=== PATIENT | female | born 1940 | race Caucasian/White ===

== ENCOUNTER 2018-03-07 09:57 | Outpatient (CLI) | payer MEDICARE ==
--- NOTE | 2018-03-07 11:51 | CT ---
ABDOMEN AND PELVIS CT, WITH AND WITHOUT CONTRAST: INDICATION: Fatigue, Crohn's disease, abdominal pain. FINDINGS: No consolidation or effusion at the imaged lung bases. There is abnormal heterogeneous density of th e central aspect of the liver about the hepatic hilum and anterior segment right hepatic lobe/medial segment left hepatic lobe indicative of an infiltrating mass, which is also inseparable from the ileana cent distal stomach and traversing duodenum as well as encasing the biliary system. There is associa parker periportal/portocaval adenopathy. There is a noninflamed ventral abdominal wall hernia containin g nonobstructed bowel. Diffuse atherosclerosis is present. The kidneys are atrophic without hydrone phrosis. No adrenal mass. Pancreas is atrophic. The spleen is unremarkable. There is no small bow el obstruction evident. There is lipomatous hypertrophy of the ileocecal valve. Nonspecific wall th ickening of the colon is present, some of which may be due to under distention as well as the patient 's prior history of inflammatory bowel disease. There are also colonic diverticula. There is scatte red osseous degenerative change. IMPRESSION: Findings most consistent with an infiltrating/inflammatory malignancy which is centered about the hep atic hilum, involving the right and left hepatic lobes, encasing the biliary system, as well as insep arable from the distal stomach and transversing duodenum. This likely arises from the biliary system with invasion of the adjacent alimentary canal, and also extending into the central aspect of the li mariluz. There is adjacent, metastatic adenopathy. PET CT may prove useful for further assessment. POS: [facility]
[2018-03-07] MEDS ORDERED: Iopamidol 370 76% 100 ML VIAL ONE (15:01)
== END 2018-03-07 09:58 | disposition home or self-care (01) ==
LOC: CT 09:57
PROVIDERS: ATTEND Internal Medicine Gastroenterology
DX: K50.90 Crohn's disease, unspecified, without complications (principal); K43.9 Ventral hernia without obstruction or gangrene; R93.2 Abnormal findings on diagnostic imaging of liver and biliary tract; R63.4 Abnormal weight loss; R53.83 Other fatigue; R10.31 Right lower quadrant pain
CPT/HCPCS: 74178; 82565

== ENCOUNTER 2018-03-28 09:05 | Day surgery (SDC) | payer MEDICARE ==
[2018-03-27 12:38] VITALS: BMI 29.5
[~2018-03-28 09:05] MED LIST: Prevnar 13-Val Conj/PF 0.5 ML SYRINGE IM ONE
[2018-03-28 09:23] LABS: #Basophils 0.1 thou/uL (0.0-0.2); #Eosinphils 0.3 thou/uL (0.0-0.7); #Lymphocytes 2.4 thou/uL (1.20-3.40); #Monocytes 0.4 thou/uL (0.11-0.59); %Basophils 0.6 % (0.0-1.0); %Eosinophils 3.3 % (0.0-10.0); %Lymphocytes 29.5 % (21.0-51.0); %Monocytes 5.3 % (0.0-10.0); %Neutrophils 61.2 % (42.0-75.0); Hemoglobin 13.2 g/dL (12.0-16.0); Mean Corpuscular HGB CONC 35.1 g/dL (32.0-36.0); Mean Corpuscular Hemoglobin 29.8 pg (27.0-31.0); Mean Corpuscular Volume 84.7 fL (78.0-98.0); Mean Platelet Volume 6.7 fL (7.4-10.4); Platelet Count 253 thou/uL (130-400); Red Blood Cell (RBC) Count 4.43 mill/uL (4.20-5.40); White Blood Cell (WBC) Count 8.2 thou/uL (4.8-10.8)
[2018-03-28 10:27] VITALS: BP 154/76; TEMP 97.6
[2018-03-28] MEDS ORDERED: HYDROcodone/Acetaminophen 5/325 mg Tablet ONE (11:24)
--- NOTE | 2018-03-28 12:20 | CT ---
CT GUIDED LIVER BIOPSY: Indication: Liver masses have been previously documented on CT. Patient referred for CT directed biop sy of this liver mass. FINDINGS: The mass in the central liver near the portahepatis is again seen. This mass was biopsied under CT gu idance with 18 gauge instrument. Two 18 gauge core specimens were obtained, each approximately 3 cm i n length. Pathology confirmed adequacy of tissue at bedside. There were no problems or complications. PROCEDURE NOTE: The procedure and potential risks were discussed with patient and her daughter. Patient was placed [place] on the CT table. CT scan was performed and the skin entry site was identified. The overlying ski n was then prepped and draped in a sterile manner. Local anesthesia was administered with Lidocaine a nd bicarb. Tiny skin incision was made. A 17 gauge guide needle with Trocar in place was introduced u nder CT guidance. Tip was placed within the mass. A core specimen was obtained and given to pathology . Pathology confirmed adequate tissue with evidence of pathology. A second 3 cm 17 gauge core was obtained. Post procedure CT shows no significant hematoma. Patient was sent to recovery in good condition. POS: [facility]
== END 2018-03-28 13:10 | disposition home or self-care (01) ==
LOC: CT 09:05
PROVIDERS: ATTEND Radiology Diagnostic Radiology
PROC: 0FB03ZX Excision of Liver, Percutaneous Approach, Diagnostic (ICD-10-PCS; principal; 2018-03-28)
DX: C22.7 Other specified carcinomas of liver (principal); K46.9 Unspecified abdominal hernia without obstruction or gangrene; Z88.2 Allergy status to sulfonamides; Z91.041 Radiographic dye allergy status; Z79.899 Other long term (current) drug therapy
CPT/HCPCS: 36415; 47000; 77002; 85025; 85610; 85730; 88307; 88333; 88334; 88341; 88342

== ENCOUNTER 2018-04-19 07:57 | Outpatient (CLI) | payer MEDICARE ==
--- NOTE | 2018-04-19 13:21 | MRI ---
MRI ABDOMEN WITH AND WITHOUT CONTRAST: HISTORY: Malignant neoplasm of the biliary tract. COMPARISON: CT from 03/07/2018. FINDINGS: There is a large mass in the left and right lobes of the liver, involving segments 4A and 4B, as well as hepatic segments 5 and 6. This is the index mass and it measures 8.2 x 7.1 x 9 cm. This mass is predominantly centrally necrotic. There is extension along the peripheral biliary system, into hepa tic segment 8. The measurements are saved on the examination for comparison in the future. The mass extends along the common bile duct and follows the duodenum, second portion. There is also a new co mparison examination subcapsular mass, hepatic segment 8, measuring up to 1.3 cm. The portal vein is patent. The renal cortices are thin. Small loc hepatis lymph nodes. These do not appear to be definitivel y involved. They measure up to 7 mm in short axis and is saved on the exam. The spleen is unremarkable. The adrenal glands are unremarkable. No aneurysmal dilatation of the aorta. Marrow signal is unremarkable. IMPRESSION: 1. Large biliary malignancy involving multiple segments of the left and right lobes of the liver, ex tending to involve the gallbladder, with extension along the second portion of the duodenum. There i s also a new satellite metastatic lesion, hepatic segment 8, subcapsular. 2. Small loc hepatis lymph node, not definitively involved. POS: [facility]
[2018-04-19] MEDS ORDERED: Gadobenate Dimeglumine 529 MG/1 ML (20ML VIAL) ONE (14:28)
--- NOTE | 2018-04-19 15:54 | PET ---
NUCLEAR MEDICINE FDG PET CT WHOLE BODY: (Positron Emission Tomography) DATE: 04/19/18 HISTORY: 77-year-old female with malignant neoplasm of overlapping sites of biliary tract. Initial stagi ng. COMPARISON: No prior PET CTs. There is a CT of the abdomen and pelvis of 03/07/18 and MRI of abdomen or 04/19/18. TECHNIQUE: IV injection F-18 Fluorodeoxyglucose (FDG) dose: 12.9 mCi. Whole body PET and attenuation-correction CT performed from skull base to proximal thighs. FINDINGS: SUV (standard uptake value) numbers given are maximum SUV's: There is no abnormal FDG-avid lesion in the neck or chest. The large mass centered at the hepatic hilum, invading adjacent portions of the left and right lobes of the liver, is very FDG-avid, with SUV up to 15.3. Separate from this, there is a small satellite n odule in the anterior upper right lobe of the liver, in a subcapsular location, probably at hepatic s egment 8, with SUV of 5.7. There is no FDG avidity in the extrahepatic portion of the mass, including the portion that surrounds the second stage of the duodenum and hepatic hilum. In fact, the second s tage of the duodenum appears less thickening on the current attenuation correction CT images than on the original CT with contrast of 03/07/18. No hypermetabolic lymph nodes of the loc hepatis, mesent hussein, or retroperitoneum, or iliac chains, identified. There are numerous foci of increased uptake in different portions of the colon. There is herniation of a loop of mid segment of a redundant transver se colon, through a 5.5 cm wide defect in the lower ventral abdominal wall, with the hernia sac in th e subcutaneous fat. IMPRESSION: 1. Large confluent intrahepatic mass that is highly FDG-avid, representing a large malignant hepatic neoplastic tumor. 2. There is a small satellite FDG-avid nodule located separately from this superiorly in a subcapsul ar location at the anterior liver dome. 3. The extrahepatic loc hepatis abnormalities, including that of the duodenum, noted on recent MRI and prior CT, are not hypermetabolic. 4. No evidence of distant metastasis. AZUL Galeana POS: [facility]
== END 2018-04-19 07:58 | disposition home or self-care (01) ==
LOC: MRI 07:57
PROVIDERS: ATTEND Internal Medicine Hematology & Oncology
DX: C24.8 Malignant neoplasm of overlapping sites of biliary tract (principal); Z01.812 Encounter for preprocedural laboratory examination; C78.7 Secondary malignant neoplasm of liver and intrahepatic bile duct; C78.89 Secondary malignant neoplasm of other digestive organs; C78.4 Secondary malignant neoplasm of small intestine; K76.89 Other specified diseases of liver
CPT/HCPCS: 74183; 78815; 82565; A9552; A9579

== ENCOUNTER 2018-05-01 06:45 | Day surgery (SDC) | payer MEDICARE ==
[2018-04-30 11:16] VITALS: BMI 28.5
[2018-05-01] MEDS ORDERED: CEFAZOLIN/Water 2 GM/20 ML SYRINGE ONE (07:57)
[2018-05-01] MEDS ORDERED: Bupivacaine/Epinephrine 0.25% 30 ML VIAL ONE (08:27)
[2018-05-01] MEDS ORDERED: Lidocaine 2% PF Inj 2 ML VIAL ONE (08:27)
[2018-05-01] MEDS ORDERED: Fentanyl 100 MCG/2 ML VIAL ONE (08:28)
[2018-05-01] MEDS ORDERED: Midazolam HCl 2 mg/2 ml Vial ONE (08:28)
--- NOTE | 2018-05-01 11:40 | RAD ---
CHEST ONE VIEW: HISTORY: Mediport placement. COMPARISON: None. FINDINGS: The port catheter is in place with the tip projecting over the superior SVC. The patient is rotated to the left. Likely calcified granuloma projecting over the right upper lobe. IMPRESSION: Uncomplicated placement of port catheter. POS: [facility]
[2018-05-01] MEDS ORDERED: PROPOFOL 200 MG/20 ML VIAL ONE (13:50)
[2018-05-01] MEDS ORDERED: Ondansetron HCl/PF 4 MG/2 ML Vial ONE (13:50)
--- NOTE | 2018-05-02 13:45 | OP ---
DATE OF PROCEDURE: 05/01/2018 PREOPERATIVE DIAGNOSIS: Biliary cancer. POSTOPERATIVE DIAGNOSIS: Biliary cancer. PROCEDURE: Tunneled central line subcutaneous port (MediPort), CT injectable. SURGEON: Dr. Flex Peña. ANESTHESIA: General. ESTIMATED BLOOD LOSS: Minimal. COMPLICATIONS: None. SPECIMEN: None. TECHNIQUE: The patient was taken to the operating room and placed supine on the table. After genera l anesthetic was obtained, the bilateral neck and chest were prepped and draped in a sterile fashion. Local anesthetic infiltrated over the right internal jugular vein. Intrajugular vein cannulated us ing a 20 gauge finder needle followed by a Seldinger wire was passed into superior vena cava under fl uoroscopy guidance. A small diamante was made through entrance site. A separate 3 cm incision made in t he right upper chest. Subcutaneous pocket made below the lower incision. Tubing for the MediPort tu nneled from the inferior to superior incision. Introducer sheath placed over the wire into the super ior vena cava under fluoroscopic guidance. The dilator and wire removed. The end of the catheter th readed into the sheath and sheath is peeled away. The tip of catheter is at the atriocaval junction. MediPort tubing cut to fit the MediPort at the lower incision. Tubing was connected to MediPort wh ich was sewn to the chest wall in the subcutaneous pocket using Prolene. The MediPort flushes and dr jess blood without difficulty, flushed with a heparin flush. The wounds are irrigated and closed usin g 3-0 Vicryl, 4-0 Monocryl, and Dermabond. The patient was en route to recovery in stable condition. All instrument counts, needle counts, lap counts were correct.
== END 2018-05-01 10:19 | disposition home or self-care (01) ==
LOC: SDC 06:45
PROVIDERS: ATTEND Surgery
PROC: 0JH63WZ Insertion of Totally Implantable Vascular Access Device into Chest Subcutaneous Tissue and Fascia, Percutaneous Approach (ICD-10-PCS; principal; 2018-05-01)
DX: C24.9 Malignant neoplasm of biliary tract, unspecified (principal); I10 Essential (primary) hypertension; Z88.2 Allergy status to sulfonamides; Z91.041 Radiographic dye allergy status; Z79.899 Other long term (current) drug therapy
CPT/HCPCS: 36561; 71045; C1788; J1642; J2250; J2405; J2704; J3010

== ENCOUNTER 2018-05-05 19:24 | Inpatient (IN) | payer MEDICARE ==
[2018-05-05] MEDS ORDERED: Acetaminophen 500 MG TAB ONE (20:19)
[2018-05-05 20:30] LABS: Hemoglobin 11.2 g/dL (12.0-16.0); Mean Corpuscular HGB CONC 33.8 g/dL (32.0-36.0); Mean Corpuscular Hemoglobin 28.3 pg (27.0-31.0); Mean Corpuscular Volume 83.9 fL (78.0-98.0); Mean Platelet Volume 7.1 fL (7.4-10.4); Platelet Count 128 thou/uL (130-400); RBC Distribution Width 12.9 % (11.5-14.5); Red Blood Cell (RBC) Count 3.95 mill/uL (4.20-5.40); White Blood Cell (WBC) Count 6.8 thou/uL (4.8-10.8)
[2018-05-05] MEDS ORDERED: Cefepime 2 GM in Sodium Chloride 0.9% 100 ML IVPB SCH (20:30)
[2018-05-05] MEDS ORDERED: Vancomycin HCl 1.5 GM in Sodium Chloride 0.9% 250 ML 300 ML IVPB SCH (20:30)
[2018-05-05 20:33] LABS: Band 2 % (5-11); Lymphocytes 25 % (21-51); MDiff Complete? YES; Neutrophil 71 % (42-75); PLT Morphology Comment Appears Decreased; Polychromasia SLIGHT = 2-3 cells (100X) (0-2/hpf); Reactive Lymphocytes 2 % (0-10)
[2018-05-05 20:38] LABS: ALT (SGPT) 75 U/L (8-55); AST (SGOT) 103 U/L (5-34); Albumin 3.5 g/dL (3.4-4.8); Alkaline Phosphatase 129 U/L (40-150); Anion Gap 15 mmol/L (10-20); BUN (Urea Nitrogen) 17 mg/dL (9.8-20.1); Bilirubin, Total 0.7 mg/dL (0.2-1.2); Calc. Creatinine Clearance 0 mL/min (70-130); Calcium 8.5 mg/dL (7.8-10.44); Carbon Dioxide 29 mmol/L (23-31); Chloride 94 mmol/L (98-107); Estimated GFR-MDRD 49; Globulin 3.5 g/dL (2.4-3.5); Glucose 102 mg/dL (83-110); Potassium 3.6 mmol/L (3.5-5.1); Sodium 134 mmol/L (136-145)
[2018-05-05] MEDS ORDERED: Bisacodyl 5 MG TAB PO PRN (22:10)
[2018-05-05] MEDS ORDERED: Acetaminophen 650 MG Suppository PR PRN (22:10)
--- NOTE | 2018-05-05 22:10 | RAD ---
PORTABLE CHEST: 05/05/18 HISTORY: Fever, chills. COMPARISON: 11/03/11 study. The patient is somewhat rotated on this exam. The heart size appears slightly enlarged. Right sided M ediport catheter is present. There are atherosclerotic changes of the aorta. The lungs are clear of i nfiltrates. IMPRESSION: Mild cardiomegaly. POS: [facility]
[2018-05-05 23:04] LABS: Bilirubin Negative (Negative); Blood, Urine Negative (Negative); Clarity CLEAR (Clear); Glucose, Urine (Dipstick) Negative (Negative); Leukocyte Negative (Negative); Nitrite Negative (Negative); Protein, Urine (Dipstick) Trace mg/dL (Neg-Trace); Specific Gravity, Urine 1.017 (1.002-1.036); pH, Urine 6.5 (5.0-9.0)
[2018-05-06] MEDS: Sodium Chloride 0.9% 1,000 ML IV SCH ×2 (00:57→17:35)
[2018-05-06 01:15] VITALS: BMI 29.0
[2018-05-06 01:32] LABS: HBCM Index 0.07 S/CO (0-0.79); HBSAg Index 0.19 S/CO (0-0.99); Hep A IgM AB Non-Reactive (NonReactive); Hep A IgM S/CO 0.09 S/CO (0-0.79); Hep B Surf Ag Non-Reactive S/CO (NonReactive); Hep C IgG Ab Non-Reactive (NonReactive); Hep C Index 0.18 S/CO (0-0.79); Hepatitis B Core IGM Abs Non-Reactive (NonReactive)
[2018-05-06] MEDS: Acetaminophen 325 MG TAB PO PRN (05:17)
[2018-05-06 05:46] LABS: #Lymphocytes 1.1 thou/uL (1.20-3.40); #Neutrophils 5.6 thou/uL (1.40-6.50); %Eosinophils 0.3 % (0.0-10.0); %Lymphocytes 16.1 % (21.0-51.0); %Monocytes 0.2 % (0.0-10.0); %Neutrophils 83.4 % (42.0-75.0); Hemoglobin 10.1 g/dL (12.0-16.0); Mean Corpuscular HGB CONC 34.3 g/dL (32.0-36.0); Mean Corpuscular Hemoglobin 28.7 pg (27.0-31.0); Mean Corpuscular Volume 83.7 fL (78.0-98.0); Mean Platelet Volume 6.6 fL (7.4-10.4); Platelet Count 111 thou/uL (130-400); RBC Distribution Width 12.8 % (11.5-14.5); Red Blood Cell (RBC) Count 3.53 mill/uL (4.20-5.40); White Blood Cell (WBC) Count 6.7 thou/uL (4.8-10.8)
[2018-05-06 05:52] LABS: Anion Gap 13 mmol/L (10-20); BUN (Urea Nitrogen) 15 mg/dL (9.8-20.1); Calc. Creatinine Clearance 62 mL/min (70-130); Calcium 8.3 mg/dL (7.8-10.44); Carbon Dioxide 27 mmol/L (23-31); Chloride 98 mmol/L (98-107); Estimated GFR-MDRD 59; Glucose 101 mg/dL (83-110); Potassium 3.3 mmol/L (3.5-5.1); Sodium 135 mmol/L (136-145)
--- NOTE | 2018-05-06 07:52 | ULT ---
RIGHT UPPER QUADRANT ULTRASOUND: DATE: 05/06/18. HISTORY: Transaminits. COMPARISON: CT abdomen on 03/07/18. FINDINGS: There is a hypoechoic mass seen in the right hepatic lobe adjacent to the gallbladder and extending i nto the region of the gallbladder. This hypoechoic mass measures 7.3 cm in maximal dimensions and wa s seen on a prior CT examination. The adjacent gallbladder demonstrates significantly thickened gall bladder wall. The lumen of the gallbladder is narrowed. The common duct measuring 0.7 cm, which is within normal limits for the patient's age. No intrahepatic biliary ductal dilatation is appreciated on this exam. The majority of the pancreas is obscured, but the limited visualized portions of the pancreas, visual ized portions of the IVC, and right kidney demonstrate a normal sonographic appearance. The right ki dney measures 9.7 cm in length. IMPRESSION: Abnormal prominent thickening of the patrick of the gallbladder with narrowing of the lumen of the gall bladder. There is an adjacent hypoechoic mass measuring 7.3 cm within the liver. These findings wer e seen on the prior CT examination, and findings are most likely related to malignant neoplasm of the biliary system with involvement of the gallbladder. The common duct measures 0.7 cm, which is withi n normal limits for the patient's age. POS: [facility]
[2018-05-06] MEDS ORDERED: diphenhydrAMINE 25 MG CAP PO PRN (07:57)
[2018-05-06] MEDS ORDERED: Eucerin (Mineral Oil/Petrolatum,White) 30 gm Jar TOP PRN (07:57)
[2018-05-06] MEDS ORDERED: Diphenoxylate HCl/Atropine Tablet PO PRN (07:57)
[2018-05-06] MEDS ORDERED: hydrALAZINE 20 MG/ML VIAL SLOW IVP PRN (07:57)
[2018-05-06] MEDS ORDERED: Temazepam 15 MG CAP PO PRN (07:57)
[2018-05-06] MEDS ORDERED: Sodium Chloride 0.65% Nasal 44 ML BOT EA NARE PRN (07:57)
[2018-05-06] MEDS ORDERED: Diabetic Tussin 200 MG/10 ML UDCUP PO PRN (07:57)
[2018-05-06] MEDS ORDERED: Milk Of Magnesia 30 ML UDCUP PO PRN (07:57)
[2018-05-06] MEDS ORDERED: Artificial Tears 18 DROP/0.9 ML EA EYE PRN (07:57)
[2018-05-06] MEDS ORDERED: Mag-Al 1200 mg/1200 mg/30 ML UDCUP PO PRN (07:57)
[2018-05-06] MEDS ORDERED: Chloraseptic Spray 180 ml Bottle PO PRN (07:57)
[2018-05-06] MEDS: Famotidine/PF 20 mg/2ml Vial SLOW IVP SCH ×2 (08:55→21:00)
[2018-05-06] MEDS: azaTHIOprine 50 MG TAB PO SCH (08:55)
[2018-05-06] MEDS: Saccharomyces boulardii 250 MG CAP PO SCH (08:56)
[2018-05-06] MEDS ORDERED: Famotidine 20 MG TAB PO SCH (09:00)
[2018-05-06] MEDS ORDERED: Enoxaparin Sodium 40 MG/0.4 ML SYRINGE SC SCH (09:00)
--- NOTE | 2018-05-06 10:45 | PDOC.PN ---
- Subjective Encounter Start Date: 05/06/18 Encounter Start Time: 07:10 -: old records requested/rev Patient seen and examined. No new complaints. No overnight events she has poor apatite, no fever today, no UTI symptoms, no cough - Objective Resuscitation Status: Resuscitation Status FULL:Full Resuscitation MAR Reviewed: Yes Vital Signs & Weight: Vital Signs (12 hours) Temp Pulse Resp BP Pulse Ox 05/06/18 08:56 82 129/63 05/06/18 07:51 98.3 F 85 18 120/56 L 93 L 05/06/18 06:29 98.6 F 05/06/18 05:15 98.9 F 05/06/18 03:57 98.6 F 86 18 93 L 05/06/18 01:21 92 L 05/05/18 23:45 98.3 F 87 20 144/75 H 92 L Weight Weight 168 lb 14.4 oz I&O: 05/05/18 05/06/18 05/07/18 06:59 06:59 06:59 Intake Total 840 Balance 840 Result Diagrams: 05/06/18 05:25 05/06/18 05:25 Radiology Reviewed by me: Yes (us abdomen, chest xray reviewed) Phys Exam - Physical Examination Constitutional: NAD HEENT: PERRLA, moist MMs, sclera anicteric Neck: no JVD, supple Respiratory: no wheezing, no rales, no rhonchi Cardiovascular: RRR, no significant murmur, no rub Gastrointestinal: soft, non-tender, no distention, positive bowel sounds Musculoskeletal: no edema, pulses present Neurological: non-focal, normal sensation, moves all 4 limbs Psychiatric: normal affect, A&O x 3 Skin: no rash, normal turgor, cap refill <2 seconds Dx/Plan (1) Abnormal LFTs Code(s): R94.5 - ABNORMAL RESULTS OF LIVER FUNCTION STUDIES Status: Acute (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 Status: Acute (3) Fever Code(s): R50.9 - FEVER, UNSPECIFIED Status: Acute (4) Hypokalemia Code(s): E87.6 - HYPOKALEMIA Status: Acute (5) Thrombocytopenia Code(s): D69.6 - THROMBOCYTOPENIA, UNSPECIFIED Status: Acute (6) Anemia, normocytic normochromic Code(s): D64.9 - ANEMIA, UNSPECIFIED Status: Chronic (7) Crohns disease Code(s): K50.90 - CROHN'S DISEASE, UNSPECIFIED, WITHOUT COMPLICATIONS Status: Chronic (8) Hypertension Code(s): I10 - ESSENTIAL (PRIMARY) HYPERTENSION Status: Chronic - Plan cont current plan of care, continue antibiotics * continue cefepime, vancomycin for now * follow culture * send culture from mediport * will consult GI as pt has appointment tomorrow * does not have clinically any evidence of cholangitis, suspecting post chemo fever * medication reviewed as below * symptomatic treatment * home medication reconciled. Review of Systems - Review of Systems Constitutional: weakness. negative: fever, chills, sweats, malaise, other Eyes: negative: Pain, Vision Change, Conjunctivae Inflammation, Eyelid Inflammation, Redness, Other ENT: negative: Ear Pain, Ear Discharge, Nose Pain, Nose Discharge, Nose Congestion, Mouth Pain, Mouth Swelling, Throat Pain, Throat Swelling, Other Respiratory: negative: Cough, Dry, Shortness of Breath, Hemoptysis, SOB with Excertion, Pleuritic Pain, Sputum, Wheezing Cardiovascular: negative: chest pain, palpitations, orthopnea, paroxysmal nocturnal dyspnea, edema, light headedness, other Gastrointestinal: negative: Nausea, Vomiting, Abdominal Pain, Diarrhea, Constipation, Melena, Hematochezia, Other Genitourinary: negative: Dysuria, Frequency, Incontinence, Hematuria, Retention , Other Musculoskeletal: negative: Neck Pain, Shoulder Pain, Arm Pain, Back Pain, Hand Pain, Leg Pain, Foot Pain, Other Skin: negative: Rash, Lesions, Al, Bruising, Other - Medications/Allergies Allergies/Adverse Reactions: Allergies Allergy/AdvReac Type Severity Reaction Status Date / Time Iodine and Iodide Containing Allergy Intermediate Rash Verified 05/06/18 00:13 Produc Sulfa (Sulfonamide Allergy Mild Hives Verified 05/06/18 00:13 Antibiotics) Medications: Current Medications Acetaminophen (Tylenol) 650 mg PO Q4H PRN PRN Reason: Headache/Fever or Pain Last Admin: 05/06/18 05:17 Dose: 650 mg Al Hydroxide/Mg Hydroxide (Maalox) 15 ml PO Q4H PRN PRN Reason: Heartburn or Indigestion Artificial Tears (Tears Naturale) 0 drop EA EYE PRN PRN PRN Reason: Dry Eyes Azathioprine (Imuran) 50 mg PO DAILY [facility] Last Admin: 05/06/18 08:55 Dose: 50 mg Bisacodyl (Dulcolax) 10 mg PO DAILYPRN PRN PRN Reason: Constipation Diphenhydramine HCl (Benadryl) 25 mg PO Q4H PRN PRN Reason: Itching Diphenoxylate HCl/Atropine (Lomotil) 1 tab PO QIDPRN PRN PRN Reason: Diarrhea/Loose Stools Enoxaparin Sodium (Lovenox) 40 mg SC 0900 [facility] Last Admin: 05/06/18 08:55 Dose: 40 mg Famotidine (Pepcid) 20 mg SLOW IVP Q12HR [facility] Last Admin: 05/06/18 08:55 Dose: 20 mg Guaifenesin (Robitussin Sf) 200 mg PO Q4H PRN PRN Reason: Cough Hydralazine HCl (Apresoline) 10 mg SLOW IVP Q4H PRN PRN Reason: Systolic BP > 180 Sodium Chloride (Normal Saline 0.9%) 1,000 mls @ 60 mls/hr IV .[id number] [facility] Last Admin: 05/06/18 00:57 Dose: 1,000 mls Magnesium Hydroxide (Milk Of Magnesium) 30 ml PO DAILYPRN PRN PRN Reason: Constipation Metoprolol Succinate (Toprol Xl) 100 mg PO DAILY [facility] Last Admin: 05/06/18 08:55 Dose: 100 mg Mineral Oil/White Petrolatum (Eucerin Cream) 0 gm TOP BIDPRN PRN PRN Reason: Dry Skin Ondansetron HCl (Zofran Odt) 4 mg PO Q6H PRN PRN Reason: Nausea/Vomiting Ondansetron HCl (Zofran) 4 mg IVP Q6H PRN PRN Reason: Nausea/Vomiting Phenol (Chloraseptic [place] 180 Ml Bot) 0 ml PO PRN PRN PRN Reason: Sore Throat Saccharomyces Boulardii (Florastor) 250 mg PO DAILY [facility] Last Admin: 05/06/18 08:56 Dose: 250 mg Sodium Chloride (Flush - Normal Saline) 10 ml IVF Q12HR [facility] Last Admin: 05/06/18 08:56 Dose: Not Given Sodium Chloride (Flush - Normal Saline) 10 ml IVF PRN PRN PRN Reason: Saline Flush Sodium Chloride ([place] Nasal [place] 0.65%) 0 ml EA NARE QIDPRN PRN PRN Reason: Nasal Congestion Temazepam (Restoril) 15 mg PO HSPRN PRN PRN Reason: Insomnia
[2018-05-06] MEDS: Ondansetron HCl/PF 4 MG/2 ML Vial IVP PRN (12:30)
[2018-05-06] MEDS ORDERED: Loperamide HCl 2 MG CAP PO PRN (12:40)
[2018-05-06] MEDS ORDERED: Cefepime 2 GM in Sodium Chloride 0.9% 100 ML IVPB SCH (15:15)
--- NOTE | 2018-05-06 19:45 | CON ---
DATE OF CONSULTATION: 05/06/2018 GASTROENTEROLOGY CONSULTATION NOTE CHIEF COMPLAINT: Fever. HISTORY OF PRESENT ILLNESS: Ms. Garcia is a 77-year-old woman who was admitted to the hospital due to fevers. She reported fever of over 101 yesterday and when she came to the emergency room last night. She has had no further fever today. She has had chills today and yesterday. She has no nausea or vomiting. No abdominal pain, no blood in the stool. She does have diarrhea which has been stable. She has 4-5 liquidy stools in a day then she takes Imodium and goes 3-5 days without a bowel movement and then had another day of diarrhea which point she takes Imodium again and restarts the cycle. PAST MEDICAL HISTORY: Crohn's disease of the small bowel. She presented around 2011 with small-baljeet l obstruction, requiring resection around the foot and a half of distal ileum. She has been since on azathioprine and Humira, which she is on weekly. Her last Humira injection was 04/30/2018. She also started chemotherapy recently for cholangiocarcinoma. She has cancer of the gallbladder wi th associated mass in the liver as well. She has not had a common bile duct obstruction. Her second dose of chemotherapy was 05/03/2018. Gastroesophageal reflux disease, hyperlipidemia, hypertension, and arthritis. PAST SURGICAL HISTORY: Cataract surgery, appendectomy, hysterectomy, knee replacement, upper and low er endoscopy with polypectomy. FAMILY HISTORY: Negative for GI malignancy. SOCIAL HISTORY: No alcohol, tobacco or drugs. ALLERGIES: IODINE AND SULFA. MEDICATIONS: Prior to admission, azathioprine, Humira, Imodium or Lomotil every few days, Citrucel, VSL #3, Levsin, lisinopril, amlodipine, Premarin, Naproxen, and recently she has started chemo for th e cholangiocarcinoma. REVIEW OF SYSTEMS: Negative x10 systems reviewed except as stated in the history of present illness. PHYSICAL EXAMINATION: VITAL SIGNS: Temperature is 98.3, pulse 82, blood pressure 120/56. GENERAL: She is in no acute distress, alert and oriented x3. HEENT: Eyes have no scleral icterus. Oropharynx is clear without lesions. NECK: No cervical or supraclavicular lymphadenopathy. LUNGS: Clear to auscultation bilaterally. HEART: Regular rate and rhythm without murmur. ABDOMEN: Soft, nontender, nondistended. Bowel sounds are present. EXTREMITIES: No lower extremity edema. LABORATORY DATA: White blood cell count 6.7, hemoglobin 10.1, platelets 111. Creatinine 0.92, bilir ubin 0.7, AST 103, ALT 75, alkaline phosphatase 129. Urinalysis is unremarkable. IMPRESSION: 1. Fever. She has had cultures sent. She is not requiring antibiotics at this time. She has no si gns of cholangitis given that she has no abdominal pain and normal alkaline phosphatase and normal bi lirubin and a bile duct is not significantly dilated by imaging. She had ultrasound that showed a 7 mm bile duct. 2. Diarrhea. This is chronic and related to her Crohn's or small bowel resection. She has been on Humira and azathioprine long-term followed by Dr. Gan. She takes Imodium or Lomotil every few days and then has no bowel movement for a few days, then this is followed by diarrhea and this cycle repea ts. Consideration could be given for a trial of Colestid given her distal ileum resection in case blu fried does get bile salt diarrhea from lack of reabsorption of the bile salts. I will defer this to Dr. Gan. Given her fever and diarrhea today, we will request stool studies. RECOMMENDATIONS: 1. Stool for Clostridium difficile and ova and parasite and culture. 2. Otherwise, continue current medicines. She is symptomatically improving with no further fever to day. Dr. Gan should be back tomorrow.
--- NOTE | 2018-05-06 19:54 | HP ---
CHIEF COMPLAINT: Subjective fever. HISTORY OF PRESENT ILLNESS: This is a 77-year-old female with a past medical history of cholangiocar cinoma, hypertension presenting with a shakiness chills and fever. The patient states that she has b een feeling cold in the past 2 days and she does feeling hot. Therefore, patient stated that she too k her temperature and a temperature of 101. Therefore, the patient called daughter and daughter stat ed that they were to come to the hospital. The patient also states that she had chemo treatment 2 da ys ago and she has a right upper chest port placed 4 days ago. Patient was recently diagnosed with c holangiocarcinoma in 03/2018. At this time, the patient denies any headache, nausea, vomiting, fever s; however, states that she does have some chills and still feels a little cold. REVIEW OF SYSTEMS: Positive for chills, cold, otherwise as documented in the HPI. All other systems were reviewed and are negative. FAMILY HISTORY: Reviewed and noncontributory to this visit. PAST MEDICAL HISTORY: Cholangiocarcinoma, hypertension. PAST SURGICAL HISTORY: 1. Right knee replacement. 2. Small intestinal removal in the past. 3. MediPort right upper chest. 4. Hysterectomy. PSYCHIATRIC HISTORY: No previous psych history noted. SOCIAL HISTORY: Patient denies ethanol use or any illicit drug use. The patient states that she has been smoking tobacco and she smokes 1 pack per day. She has been smoking for approximately 50 years . ALLERGIES: IODINE and SULFONAMIDE. CURRENT MEDICATIONS: 1. Azathioprine 50 mg daily. 2. Diphenoxylate/atropine 2.5/0.025 daily. 3. Humira weekly 40 mg/0.8 mL subcu weekly. 4. Hydrochlorothiazide 25 mg a day. 5. Lisinopril 20 mg a day. 6. Metoprolol tartrate 100 mg a day. PHYSICAL EXAMINATION: VITAL SIGNS: Blood pressure 115/83, pulse 102, respiratory rate of 20, temperature of 101.6 in the E D, oxygen saturation of 94% on room air. GENERAL APPEARANCE: The patient is lying in bed comfortably, able to speak in full sentences, does n ot appear to be in any distress. HEENT: Normocephalic, atraumatic. Pupils are equally round and reactive to light. Extraocular move ments are intact. No sclerae icterus. No conjunctival hemorrhages noted. NECK: No JVD. Trachea is midline. The patient does have a surgical incision site right upper neck with mild erythema there. CHEST: The patient does have a MediPort that is noted at the right upper chest. Patient has symmetr ic chest rise with inspiration and expiration. CARDIOVASCULAR: S1, S2, regular rate and rhythm. ABDOMEN: Obese abdomen, nontender, nondistended, no peritoneal signs. Bowel sounds are normal. EXTREMITIES: Upper extremity: Patient has good upper extremity strength and lower extremity strengt h. No edema noted at the lower extremity. NEUROLOGIC: Cranial nerves II-XII grossly intact. No neurologic deficits noted. SKIN: There is a surgical incision site on the right upper chest wall. No erythema. No swelling or pain at this time. DIAGNOSTIC STUDIES: EKG: Normal sinus rhythm with a rate of 89. Chest x-ray showed no acute cardio pulmonary process. ED COURSE: The patient was given vancomycin and cefepime, normal saline and Tylenol. LABORATORY: WBC 6.8, hemoglobin 11.2, hematocrit 33.1, platelet 128. Sodium 134, potassium 3.6, chl oride 94, carbon dioxide of 29, anion gap 15, BUN of 17, creatinine 1.09, GFR 39, glucose 102. Lacti c acid of 1.5. AST is 103, ALT 35. Urinalysis is negative. Hepatitis is negative. ASSESSMENT AND PLAN: 1. This is a 77-year-old female being admitted for fever. Currently, patient's temperature is 101.6 . The patient has been started on antibiotics. Since the patient has a firm foreign body and the il tient started chemotherapy recently, there can be possible infection. Cultures have been ordered. W e will follow up on blood cultures and also patient's fever could be due to recent chemotherapy, so w e will give patient Tylenol as needed for fevers and we will monitor the patient in the Oncology unit . 2. Cholangiocarcinoma, status post chemo. We will continue to monitor the patient. Oncology has be en consulted. We will follow with their recommendation. 3. Transaminitis, likely due to fatty liver disease. At this point, hepatitis has been ordered and has been negative. We will continue to monitor the patient. I will follow up on AST, ALT. 4. History of hypertension. We will monitor patient's blood pressure closely and we will continue p atient on her regular home dose of medications and monitor the patient closely. 5. Deep venous thrombosis and gastrointestinal prophylaxis. We will do Lovenox and sequential compr ession devices.
[2018-05-06] MEDS ORDERED: ALPRAZolam 0.5 MG TAB PO PRN (20:15)
[2018-05-06] MEDS: Nicotine 21 MG PATCH TOP SCH (21:00)
--- NOTE | 2018-05-07 00:29 | CON ---
DATE OF CONSULTATION: 05/06/2018 HISTORY OF PRESENT ILLNESS: This is a 77-year-old female who was recently diagnosed locally advanced cholangiocarcinoma of the liver. It was felt to be unresectable and was started on chemotherapy wit h gemcitabine. She received 2 doses on 04/26 and 05/03. Yesterday morning, the patient started to f eel poorly and had low-grade fever. This was followed by definite chills. Later on in the evening, she was found to have temperature of 101.6. She was seen in the emergency room and was found to be n ot neutropenic. However, a decision was made to admit her for observation, hydration, and antibiotic s. The patient was given a dose of cefepime in the emergency room, she was also given vancomycin 1.5 grams in the emergency room. Since hospitalization, she did not have any fevers in the hospital. S he is feeling better today. She cough, frequency, and dysuria. PAST MEDICAL HISTORY: Positive for arthritis, hypertension, hypercholesterolemia, Crohn disease, and anemia. The patient is followed by Dr. Gan for Crohn disease and is on Humira. PAST SURGICAL HISTORY: Include hysterectomy, appendectomy, right knee replacement, polypectomy, and small bowel resection for obstruction in 2012. PERSONAL FAMILY AND SOCIAL HISTORY: The patient is a . She has two children and lives by herse . She has [id number] history of smoking. She does not drink and does not use IV drugs. She is retired. DRUGS WITH ADVERSE EFFECT: SULFONAMIDES and IV CONTRAST DYE. CURRENT MEDICATIONS: Xanax, Dulcolax, Benadryl, Lomotil, Lovenox, Pepcid, Apresoline, Imodium. REVIEW OF SYSTEMS: The patient headache, diplopia, chest pain, cough, and abdominal pain. PHYSICAL EXAMINATION: GENERAL: The patient appears younger than her chronologic age and is alert and oriented. She is not in acute distress at the time of this examination. VITAL SIGNS: Temperature 98, pulse 74, respirations 18, oxygen saturation 94%, blood pressure 127/82 . HEENT: Unremarkable. LYMPHATICS: There is no lymphadenopathy in cervical, supraclavicular, axillary or inguinal area. CHEST: Clear to percussion and auscultation. BREASTS: Not examined. HEART: Regular rhythm. S1 and S2. ABDOMEN: Soft, bowel sounds present. No hepatosplenomegaly. EXTREMITIES: Without pedal edema. LABORATORY AND DIAGNOSTIC DATA: CBC shows WBC of 6700 with hemoglobin of 10.1 grams, and platelet co unt of 111,000. Differential showed 83.4% neutrophils and 16.1% lymphocytes. A chest x-ray, no infi ltrate. Blood cultures are negative so far. Urine culture also is negative with less than 10,000 no nhemolytic Streptococcus. ASSESSMENT AND RECOMMENDATIONS: This patient has history of fever and chills. For now, she will be continued on cefepime. MediPort site appears normal. She could be discharged after 2-3 days of obse rvation on antibiotics if her cultures stay negative. Thanks very much for allowing me to participate in this patient's care. She will be followed by our service while she is in the hospital.
[2018-05-07] MEDS: Cefepime 2 GM in Sodium Chloride 0.9% 100 ML IVPB SCH ×2 (03:30→14:15)
[2018-05-07 04:23] LABS: #Neutrophils 2.6 thou/uL (1.40-6.50); %Basophils 0.2 % (0.0-1.0); %Lymphocytes 27.6 % (21.0-51.0); %Monocytes 0.6 % (0.0-10.0); %Neutrophils 70.6 % (42.0-75.0); Hemoglobin 8.8 g/dL (12.0-16.0); Mean Corpuscular HGB CONC 33.7 g/dL (32.0-36.0); Mean Corpuscular Hemoglobin 28.2 pg (27.0-31.0); Mean Corpuscular Volume 83.8 fL (78.0-98.0); Mean Platelet Volume 6.8 fL (7.4-10.4); Platelet Count 84 thou/uL (130-400); RBC Distribution Width 12.7 % (11.5-14.5); White Blood Cell (WBC) Count 3.7 thou/uL (4.8-10.8)
[2018-05-07 04:50] LABS: ALT (SGPT) 57 U/L (8-55); AST (SGOT) 66 U/L (5-34); Albumin 2.8 g/dL (3.4-4.8); Alkaline Phosphatase 95 U/L (40-150); Anion Gap 12 mmol/L (10-20); BUN (Urea Nitrogen) 12 mg/dL (9.8-20.1); Calc. Creatinine Clearance 62 mL/min (70-130); Carbon Dioxide 27 mmol/L (23-31); Chloride 99 mmol/L (98-107); Estimated GFR-MDRD 59; Globulin 2.7 g/dL (2.4-3.5); Glucose 97 mg/dL (83-110); Protein, Total 5.5 g/dL (6.0-8.3); Sodium 135 mmol/L (136-145)
[2018-05-07 04:53] LABS: Potassium 2.9 mmol/L (3.5-5.1)
[2018-05-07] MEDS ORDERED: Potassium Chloride 20 MEQ TAB PO SCH (05:15)
[2018-05-07] MEDS ORDERED: ALPRAZolam 0.5 MG TAB PO PRN (06:30)
[2018-05-07] MEDS ORDERED: Loperamide HCl 2 MG CAP PO PRN (06:30)
[2018-05-07 07:01] LABS: Magnesium 1.2 mg/dL (1.6-2.6); Phosphorus 2.4 mg/dL (2.3-4.7)
[2018-05-07] MEDS ORDERED: Magnesium Sulfate 4 GM in Sodium Chloride 0.9% 250 ML 250 ML IVPB SCH (07:15)
[2018-05-07] MEDS: NS 0.9% w/ 40 MEQ KCL 1,000 ML IV SCH (08:07)
[2018-05-07] MEDS ORDERED: Non-Formulary Item 1 EACH (Multivitamin [Multivitamins] 1 CAP) PO SCH (09:00)
[2018-05-07] MEDS: Ondansetron ODT 4 MG TAB PO PRN (09:19)
[2018-05-07] MEDS: Saccharomyces boulardii 250 MG CAP PO SCH (09:19)
[2018-05-07] MEDS: Famotidine/PF 20 mg/2ml Vial SLOW IVP SCH ×2 (09:20→20:24)
[2018-05-07] MEDS: azaTHIOprine 50 MG TAB PO SCH (09:20)
[2018-05-07] MEDS: Multivit, Therapeutic 1 TAB PO SCH (09:20)
[2018-05-07] MEDS: Ondansetron HCl/PF 4 MG/2 ML Vial IVP PRN (09:57)
--- NOTE | 2018-05-07 10:09 | PDOC.PN ---
- Subjective Encounter Start Date: 05/07/18 Encounter Start Time: 07:20 Patient seen and examined. No new complaints. No overnight events - Objective Resuscitation Status: Resuscitation Status FULL:Full Resuscitation MAR Reviewed: Yes Vital Signs & Weight: Vital Signs (12 hours) Temp Pulse Resp BP BP Pulse Ox 05/07/18 07:57 98.2 F 77 157/67 H 97 05/07/18 00:08 98.6 F 70 16 125/67 92 L Weight Weight 168 lb 14.4 oz I&O: 05/06/18 05/07/18 05/08/18 06:59 06:59 06:59 Intake Total 840 2600 Balance 840 2600 Result Diagrams: 05/07/18 04:00 05/07/18 04:00 Phys Exam - Physical Examination Constitutional: NAD HEENT: PERRLA, moist MMs, sclera anicteric Neck: no JVD, supple Respiratory: no wheezing, no rales, no rhonchi Cardiovascular: RRR, no significant murmur, no rub Gastrointestinal: soft, non-tender, no distention, positive bowel sounds Musculoskeletal: no edema, pulses present Neurological: non-focal, normal sensation, moves all 4 limbs Psychiatric: normal affect, A&O x 3 Skin: no rash, normal turgor Dx/Plan (1) Abnormal LFTs Code(s): R94.5 - ABNORMAL RESULTS OF LIVER FUNCTION STUDIES Status: Acute (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 Status: Acute (3) Fever Code(s): R50.9 - FEVER, UNSPECIFIED Status: Acute (4) Hypokalemia Code(s): E87.6 - HYPOKALEMIA Status: Acute (5) Thrombocytopenia Code(s): D69.6 - THROMBOCYTOPENIA, UNSPECIFIED Status: Acute (6) Anemia, normocytic normochromic Code(s): D64.9 - ANEMIA, UNSPECIFIED Status: Chronic (7) Crohns disease Code(s): K50.90 - CROHN'S DISEASE, UNSPECIFIED, WITHOUT COMPLICATIONS Status: Chronic (8) Hypertension Code(s): I10 - ESSENTIAL (PRIMARY) HYPERTENSION Status: Chronic (9) Hypomagnesemia Code(s): E83.42 - HYPOMAGNESEMIA Status: Acute (10) Pancytopenia due to antineoplastic chemotherapy Code(s): D61.810 - ANTINEOPLASTIC CHEMOTHERAPY INDUCED PANCYTOPENIA; T45.1X5A - ADVERSE EFFECT OF ANTINEOPLASTIC AND IMMUNOSUP DRUGS, INIT Status: Acute - Plan cont current plan of care, plan discussed w/ family, continue antibiotics * replace potassium and magnesium * continue empiric antibiotics for now * follow culture * if culture negative tomorrow, will consider discharge today * medication reviewed as below * symptomatic treatment * discussed with family * repeat labs tomorrow. Review of Systems - Review of Systems Constitutional: negative: fever, chills, sweats, weakness, malaise, other ENT: negative: Ear Pain, Ear Discharge, Nose Pain, Nose Discharge, Nose Congestion, Mouth Pain, Mouth Swelling, Throat Pain, Throat Swelling, Other Respiratory: negative: Cough, Dry, Shortness of Breath, Hemoptysis, SOB with Excertion, Pleuritic Pain, Sputum, Wheezing Cardiovascular: negative: chest pain, palpitations, orthopnea, paroxysmal nocturnal dyspnea, edema, light headedness, other Gastrointestinal: negative: Nausea, Vomiting, Abdominal Pain, Diarrhea, Constipation, Melena, Hematochezia, Other Genitourinary: negative: Dysuria, Frequency, Incontinence, Hematuria, Retention , Other Musculoskeletal: negative: Neck Pain, Shoulder Pain, Arm Pain, Back Pain, Hand Pain, Leg Pain, Foot Pain, Other Skin: negative: Rash, Lesions, Al, Bruising, Other - Medications/Allergies Allergies/Adverse Reactions: Allergies Allergy/AdvReac Type Severity Reaction Status Date / Time Iodine and Iodide Containing Allergy Intermediate Rash Verified 05/06/18 00:13 Produc Sulfa (Sulfonamide Allergy Mild Hives Verified 05/06/18 00:13 Antibiotics) Medications: Current Medications Acetaminophen (Tylenol) 650 mg PO Q4H PRN PRN Reason: Headache/Fever or Pain Last Admin: 05/06/18 05:17 Dose: 650 mg Al Hydroxide/Mg Hydroxide (Maalox) 15 ml PO Q4H PRN PRN Reason: Heartburn or Indigestion Alprazolam (Xanax) 0.5 mg PO BID PRN PRN Reason: Anxiety Artificial Tears (Tears Naturale) 0 drop EA EYE PRN PRN PRN Reason: Dry Eyes Azathioprine (Imuran) 50 mg PO DAILY PERFECTO Last Admin: 05/07/18 09:20 Dose: 50 mg Bisacodyl (Dulcolax) 10 mg PO DAILYPRN PRN PRN Reason: Constipation Diphenhydramine HCl (Benadryl) 25 mg PO Q4H PRN PRN Reason: Itching Last Admin: 05/07/18 10:02 Dose: 25 mg Diphenoxylate HCl/Atropine (Lomotil) 1 tab PO QIDPRN PRN PRN Reason: Diarrhea/Loose Stools Famotidine (Pepcid) 20 mg SLOW IVP Q12HR [facility] Last Admin: 05/07/18 09:20 Dose: 20 mg Guaifenesin (Robitussin Sf) 200 mg PO Q4H PRN PRN Reason: Cough Hydralazine HCl (Apresoline) 10 mg SLOW IVP Q4H PRN PRN Reason: Systolic BP > 180 Cefepime HCl 2 gm/ Sodium (Chloride) 100 mls @ 200 mls/hr IVPB 0300,1500 [facility] Last Admin: 05/07/18 03:30 Dose: 100 mls Potassium Chloride/Sodium Chloride (Ns 0.9% W/ 40 Meq Kcl) 1,000 mls @ 50 mls/ hr IV .Q20H [facility] Last Admin: 05/07/18 08:07 Dose: 1,000 mls Magnesium Sulfate 4 gm/ Sodium (Chloride) 258 mls @ 86 mls/hr IVPB ONE [facility] Stop: 05/07/18 12:00 Loperamide HCl (Imodium) 2 mg PO Q4H PRN PRN Reason: Diarrhea/Loose Stools Magnesium Hydroxide (Milk Of Magnesium) 30 ml PO DAILYPRN PRN PRN Reason: Constipation Metoprolol Succinate (Toprol Xl) 100 mg PO DAILY [facility] Last Admin: 05/07/18 09:19 Dose: 100 mg Mineral Oil/White Petrolatum (Eucerin Cream) 0 gm TOP BIDPRN PRN PRN Reason: Dry Skin Multivitamins (Theragran) 1 tab PO DAILY [facility] Last Admin: 05/07/18 09:20 Dose: 1 tab Nicotine (Nicoderm Patch) 21 mg TOP Q24HR [facility] Last Admin: 05/06/18 21:00 Dose: 21 mg Ondansetron HCl (Zofran Odt) 4 mg PO Q6H PRN PRN Reason: Nausea/Vomiting Ondansetron HCl (Zofran) 4 mg IVP Q6H PRN PRN Reason: Nausea/Vomiting Last Admin: 05/07/18 09:57 Dose: 4 mg Phenol (Chloraseptic [place] 180 Ml Bot) 0 ml PO PRN PRN PRN Reason: Sore Throat Potassium Chloride (Klor-Con) 40 meq PO NOW [facility] Stop: 05/07/18 11:00 Last Admin: 05/07/18 10:00 Dose: 40 meq Saccharomyces Boulardii (Florastor) 250 mg PO DAILY [facility] Last Admin: 05/07/18 09:19 Dose: 250 mg Sodium Chloride (Flush - Normal Saline) 10 ml IVF Q12HR [facility] Last Admin: 05/07/18 09:24 Dose: 10 ml Sodium Chloride (Flush - Normal Saline) 10 ml IVF PRN PRN PRN Reason: Saline Flush Sodium Chloride ([place] Nasal [place] 0.65%) 0 ml EA NARE QIDPRN PRN PRN Reason: Nasal Congestion Temazepam (Restoril) 15 mg PO HSPRN PRN PRN Reason: Insomnia
--- NOTE | 2018-05-07 19:09 | PRG ---
DATE OF SERVICE: 05/07/2018. SUBJECTIVE: The patient is feeling better. She has not had a bowel movement for several days and th en had a loose stool today. Stool samples were positive for cryptosporidium. She has not had any na usea, vomiting. No fever and chills. OBJECTIVE: VITAL SIGNS: Temperature 98.2, pulse 77, respiratory rate 16, blood pressure 157/67. CHEST: Clear. CARDIOVASCULAR: Regular rate and rhythm. ABDOMEN: Soft, nontender, without organomegaly or masses. Bowel sounds are present. RECTAL: Deferred. EXTREMITIES: Normal. LABORATORY DATA: Stool again showed positive cryptosporidium. Stool was also positive for Campyloba cter. Stool for C. difficile is negative. ASSESSMENT: 1. Fever, possibly secondary to cryptosporidium or Campylobacter. 2. Diarrhea. 3. Crohn disease. 4. Cholangiocarcinoma. RECOMMENDATIONS: 1. Treat underlying cryptosporidium and Campylobacter. 2. Continue diet. 3. Hold Humira dose for this week.
[2018-05-07] MEDS: Nicotine 21 MG PATCH TOP SCH (20:24)
[2018-05-08] MEDS: NS 0.9% w/ 40 MEQ KCL 1,000 ML IV SCH (02:30)
[2018-05-08] MEDS: Cefepime 2 GM in Sodium Chloride 0.9% 100 ML IVPB SCH (02:58)
[2018-05-08] MEDS: Acetaminophen 325 MG TAB PO PRN (03:06)
[2018-05-08 04:28] LABS: #Lymphocytes 0.8 thou/uL (1.20-3.40); #Neutrophils 0.7 thou/uL (1.40-6.50); %Basophils 0.3 % (0.0-1.0); %Eosinophils 3.2 % (0.0-10.0); %Lymphocytes 49.6 % (21.0-51.0); %Monocytes 0.6 % (0.0-10.0); %Neutrophils 46.3 % (42.0-75.0); Mean Corpuscular HGB CONC 34.2 g/dL (32.0-36.0); Mean Corpuscular Hemoglobin 28.6 pg (27.0-31.0); Mean Corpuscular Volume 83.7 fL (78.0-98.0); Mean Platelet Volume 6.6 fL (7.4-10.4); Platelet Count 83 thou/uL (130-400); RBC Distribution Width 12.6 % (11.5-14.5); White Blood Cell (WBC) Count 1.5 thou/uL (4.8-10.8)
[2018-05-08 04:41] LABS: ALT (SGPT) 48 U/L (8-55); AST (SGOT) 61 U/L (5-34); Albumin 2.6 g/dL (3.4-4.8); Alkaline Phosphatase 86 U/L (40-150); Anion Gap 10 mmol/L (10-20); BUN (Urea Nitrogen) 10 mg/dL (9.8-20.1); Bilirubin, Total 0.6 mg/dL (0.2-1.2); Calc. Creatinine Clearance 61 mL/min (70-130); Calcium 7.9 mg/dL (7.8-10.44); Carbon Dioxide 25 mmol/L (23-31); Chloride 102 mmol/L (98-107); Estimated GFR-MDRD 58; Globulin 2.6 g/dL (2.4-3.5); Glucose 111 mg/dL (83-110); Magnesium 1.8 mg/dL (1.6-2.6); Potassium 3.5 mmol/L (3.5-5.1); Protein, Total 5.2 g/dL (6.0-8.3); Sodium 133 mmol/L (136-145)
[2018-05-08] MEDS: azaTHIOprine 50 MG TAB PO SCH (08:12)
[2018-05-08] MEDS: Ondansetron ODT 4 MG TAB PO PRN (08:12)
[2018-05-08] MEDS: Saccharomyces boulardii 250 MG CAP PO SCH (08:12)
[2018-05-08] MEDS: Famotidine/PF 20 mg/2ml Vial SLOW IVP SCH (08:12)
[2018-05-08] MEDS: Multivit, Therapeutic 1 TAB PO SCH (08:12)
--- NOTE | 2018-05-08 09:10 | PDOC.PN ---
- Subjective Encounter Start Date: 05/08/18 Encounter Start Time: 07:00 Patient seen and examined. No new complaints. No overnight events - Objective Resuscitation Status: Resuscitation Status FULL:Full Resuscitation MAR Reviewed: Yes Vital Signs & Weight: Weight Weight 168 lb 14.4 oz I&O: 05/07/18 05/08/18 05/09/18 06:59 06:59 06:59 Intake Total 2600 1400 Balance 2600 1400 Result Diagrams: 05/08/18 04:20 05/08/18 04:20 Phys Exam - Physical Examination Constitutional: NAD HEENT: PERRLA, moist MMs, sclera anicteric Neck: no JVD, supple Respiratory: no wheezing, no rales, no rhonchi Cardiovascular: RRR, no significant murmur, no rub Gastrointestinal: soft, non-tender, no distention, positive bowel sounds Musculoskeletal: no edema, pulses present Neurological: non-focal, normal sensation, moves all 4 limbs Psychiatric: normal affect, A&O x 3 Skin: no rash, normal turgor Dx/Plan (1) Abnormal LFTs Code(s): R94.5 - ABNORMAL RESULTS OF LIVER FUNCTION STUDIES Status: Acute (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 Status: Acute (3) Fever Code(s): R50.9 - FEVER, UNSPECIFIED Status: Acute (4) Hypokalemia Code(s): E87.6 - HYPOKALEMIA Status: Acute (5) Thrombocytopenia Code(s): D69.6 - THROMBOCYTOPENIA, UNSPECIFIED Status: Acute (6) Anemia, normocytic normochromic Code(s): D64.9 - ANEMIA, UNSPECIFIED Status: Chronic (7) Crohns disease Code(s): K50.90 - CROHN'S DISEASE, UNSPECIFIED, WITHOUT COMPLICATIONS Status: Chronic (8) Hypertension Code(s): I10 - ESSENTIAL (PRIMARY) HYPERTENSION Status: Chronic (9) Hypomagnesemia Code(s): E83.42 - HYPOMAGNESEMIA Status: Acute (10) Pancytopenia due to antineoplastic chemotherapy Code(s): D61.810 - ANTINEOPLASTIC CHEMOTHERAPY INDUCED PANCYTOPENIA; T45.1X5A - ADVERSE EFFECT OF ANTINEOPLASTIC AND IMMUNOSUP DRUGS, INIT Status: Acute (11) Cryptosporidial gastroenteritis Code(s): A07.2 - CRYPTOSPORIDIOSIS Status: Acute (12) Tobacco abuse Code(s): Z72.0 - TOBACCO USE Status: Chronic Comment: counselled to quit - Plan cont current plan of care, continue antibiotics * medication reviewed as below * symptomatic treatment * dc ivf * see discharge kimberly. Review of Systems - Review of Systems ENT: negative: Ear Pain, Ear Discharge, Nose Pain, Nose Discharge, Nose Congestion, Mouth Pain, Mouth Swelling, Throat Pain, Throat Swelling, Other Respiratory: negative: Cough, Dry, Shortness of Breath, Hemoptysis, SOB with Excertion, Pleuritic Pain, Sputum, Wheezing Cardiovascular: negative: chest pain, palpitations, orthopnea, paroxysmal nocturnal dyspnea, edema, light headedness, other Gastrointestinal: negative: Nausea, Vomiting, Abdominal Pain, Diarrhea, Constipation, Melena, Hematochezia, Other Genitourinary: negative: Dysuria, Frequency, Incontinence, Hematuria, Retention , Other Musculoskeletal: negative: Neck Pain, Shoulder Pain, Arm Pain, Back Pain, Hand Pain, Leg Pain, Foot Pain, Other Skin: negative: Rash, Lesions, Al, Bruising, Other - Medications/Allergies Allergies/Adverse Reactions: Allergies Allergy/AdvReac Type Severity Reaction Status Date / Time Iodine and Iodide Containing Allergy Intermediate Rash Verified 05/06/18 00:13 Produc Sulfa (Sulfonamide Allergy Mild Hives Verified 05/06/18 00:13 Antibiotics) Medications: Current Medications Acetaminophen (Tylenol) 650 mg PO Q4H PRN PRN Reason: Headache/Fever or Pain Last Admin: 05/08/18 03:06 Dose: 650 mg Al Hydroxide/Mg Hydroxide (Maalox) 15 ml PO Q4H PRN PRN Reason: Heartburn or Indigestion Alprazolam (Xanax) 0.5 mg PO BID PRN PRN Reason: Anxiety Last Admin: 05/07/18 20:23 Dose: 0.5 mg Artificial Tears (Tears Naturale) 0 drop EA EYE PRN PRN PRN Reason: Dry Eyes Azathioprine (Imuran) 50 mg PO DAILY PERFECTO Last Admin: 05/08/18 08:12 Dose: 50 mg Bisacodyl (Dulcolax) 10 mg PO DAILYPRN PRN PRN Reason: Constipation Diphenhydramine HCl (Benadryl) 25 mg PO Q4H PRN PRN Reason: Itching Last Admin: 05/07/18 10:02 Dose: 25 mg Diphenoxylate HCl/Atropine (Lomotil) 1 tab PO QIDPRN PRN PRN Reason: Diarrhea/Loose Stools Famotidine (Pepcid) 20 mg SLOW IVP Q12HR [facility] Last Admin: 05/08/18 08:12 Dose: 20 mg Guaifenesin (Robitussin Sf) 200 mg PO Q4H PRN PRN Reason: Cough Hydralazine HCl (Apresoline) 10 mg SLOW IVP Q4H PRN PRN Reason: Systolic BP > 180 Cefepime HCl 2 gm/ Sodium (Chloride) 100 mls @ 200 mls/hr IVPB 0300,1500 [facility] Last Admin: 05/08/18 02:58 Dose: 100 mls Loperamide HCl (Imodium) 2 mg PO Q4H PRN PRN Reason: Diarrhea/Loose Stools Magnesium Hydroxide (Milk Of Magnesium) 30 ml PO DAILYPRN PRN PRN Reason: Constipation Metoprolol Succinate (Toprol Xl) 100 mg PO DAILY [facility] Last Admin: 05/08/18 08:12 Dose: 100 mg Mineral Oil/White Petrolatum (Eucerin Cream) 0 gm TOP BIDPRN PRN PRN Reason: Dry Skin Multivitamins (Theragran) 1 tab PO DAILY [facility] Last Admin: 05/08/18 08:12 Dose: 1 tab Nicotine (Nicoderm Patch) 21 mg TOP Q24HR [facility] Last Admin: 05/07/18 20:24 Dose: 21 mg Nitazoxanide (Alinia) 500 mg PO BID [facility] Last Admin: 05/08/18 08:12 Dose: 500 mg Ondansetron HCl (Zofran Odt) 4 mg PO Q6H PRN PRN Reason: Nausea/Vomiting Last Admin: 05/08/18 08:12 Dose: 4 mg Ondansetron HCl (Zofran) 4 mg IVP Q6H PRN PRN Reason: Nausea/Vomiting Last Admin: 05/07/18 09:57 Dose: 4 mg Phenol (Chloraseptic [place] 180 Ml Bot) 0 ml PO PRN PRN PRN Reason: Sore Throat Saccharomyces Boulardii (Florastor) 250 mg PO DAILY [facility] Last Admin: 05/08/18 08:12 Dose: 250 mg Sodium Chloride (Flush - Normal Saline) 10 ml IVF Q12HR PERFECTO Last Admin: 05/08/18 08:12 Dose: 10 ml Sodium Chloride (Flush - Normal Saline) 10 ml IVF PRN PRN PRN Reason: Saline Flush Sodium Chloride ([place] Nasal [place] 0.65%) 0 ml EA NARE QIDPRN PRN PRN Reason: Nasal Congestion Temazepam (Restoril) 15 mg PO HSPRN PRN PRN Reason: Insomnia
[2018-05-08 09:31] VITALS: BP 140/68; TEMP 97.4
--- NOTE | 2018-05-08 10:31 | DIS ---
PRIMARY CARE PHYSICIAN: Bindu Slaughter M.D. DATE OF ADMISSION: 05/05/2018 DATE OF DISCHARGE: 05/08/2018 DISCHARGE DISPOSITION: Home. PRIMARY DISCHARGE DIAGNOSES: Neutropenic fever, cryptosporidium, diarrhea, pancytopenia due to chemotherapy, hypokalemia, and hypomagnesemia, corrected. SECONDARY DISCHARGE DIAGNOSES: Abnormal liver function tests due to cholangiocarcinoma, normocytic normochromic anemia, Crohn's disease, hypertension, tobacco abuse disorder. PRIMARY PROCEDURES/OPERATIONS: None. RADIOLOGICAL INVESTIGATION: Chest x-ray normal. Abdomen ultrasound showed cholangiocarcinoma. SIGNIFICANT LABORATORY DATA: WBC 1.5, hemoglobin 8.0, platelet 83. Sodium 133 , potassium 3.5, BUN 10, creatinine 0.94, calcium 7.9, magnesium 1.8, AST 61, ALT 48, alkaline phosphatase 86, albumin 2.6. Urinalysis normal. Hepatitis profile negative. Blood culture negative. Stool for infection workup showed cryptosporidium positive. Urine culture grew Streptococcus. DISCHARGE MEDICATIONS: Imodium 2 mg p.o. q.4 hourly p.r.n., Tylenol Arthritis 650 mg q.6 hours p.r.n., Humira 40 mg subcu every 7 days, Xanax 0.5 mg p.o. b.i.d. p.r.n., Imuran 50 mg p.o. daily, Biotin 10,000 mcg p.o. daily, Benadryl 50 mg p.o. at bedtime, Lomotil 1 or 2 tablets p.o. b.i.d. p.r.n., hydrochlorothiazide 25 mg p.o. daily, lisinopril 20 mg p.o. daily, Toprol-XL 100 mg p.o. daily, multivitamin 1 tablet p.o. daily, naproxen 375 mg p.o. b.i.d. p.r.n., Zofran 4 mg t.i.d. p.r.n., Omnicef 300 mg p.o. b.i.d. for 5 days , Alinia (nitazoxanide) 500 mg p.o. b.i.d. for 3 days, and Florastor 250 mg p.o. daily for 5 days. CONTRAINDICATIONS: None. CODE STATUS: FULL CODE. INPATIENT CONSULTANTS: Dr. Marilu Arias was following while in hospital. Dr. Bonds and Dr. Gan were following while in hospital. ALLERGIES: IODINE and IODINE CONTAINING PRODUCTS and SULFA DRUGS. DISCHARGE PLAN: Post hospital, the patient is discharged to home. Subsequently , patient will follow up with Dr. Gan. Dr. Marilu Arias as instructed. HOSPITAL COURSE: This is a 77-year-old female who has underlying Crohn's disease and she is getting Humira and Imuran through Dr. Gan. She also has cholangiocarcinoma and she is following Dr. Arias. She was getting chemotherapy. Subsequently, she was admitted to the hospital after chemotherapy with fever, poor appetite, nausea, and diarrhea. Her stool studies showed cryptosporidium, which we started treating while in hospital. She will need total of 3 days' therapy with nitazoxanide. While in hospital, she had abnormal electrolytes with low sodium, low potassium, and low magnesium , which was replaced. The patient was given empirically cefepime and vancomycin. Her all cultures remain negative except urine cultures showed Streptococcus. On discharge, we changed to Omnicef. Rest of medication was continued as per previous. We provided counseling to avoid smoking. The patient will continue all previous medications. While in hospital, Dr. Arias and Dr. Gan was following. The patient was not received her due Humira therapy, which was postponed to next week. At this point, the patient is back to her baseline level. She is tolerating p.o. well, ambulatory and energetic to go home. The patient is seen and examined at bedside today. Please see my progress note from today for further details. Total time spent on discharge day 31 minutes. MTDD
--- NOTE | 2018-05-08 11:43 | PRG ---
DATE OF SERVICE: 05/08/2018 SUBJECTIVE: The patient is having loose bowel movements, but they seem to be more formed than yester day. She is eating a little better. She is having no abdominal pain. OBJECTIVE: VITAL SIGNS: Temperature 97.4, pulse 65, respiratory rate 20, blood pressure 140/68. HEENT: Unremarkable. CHEST: Clear. CARDIOVASCULAR: Regular rate and rhythm. ABDOMEN: Soft and nontender without organomegaly or masses. Bowel sounds are present and normoactiv e. LABORATORY DATA: Shows white blood cell count 1.5, hemoglobin 8.0, platelet count is 83,000. Labora tory shows glucose 111, AST 61, albumin 2.6. Stool culture shows yeast species. ASSESSMENT: 1. Diarrhea with stool studies showing both cryptosporidium and Campylobacter. 2. Crohn's disease. 3. Cholangiocarcinoma. RECOMMENDATIONS: 1. Agree with discharge. 2. Hold Humira dose this week. 3. Continue diet, push fluids. 4. We will have the patient follow up in the office with me to determine when to resume Humira.
== END 2018-05-08 12:05 | disposition home or self-care (01) | DRG 809 ==
LOC: ERS 19:24 → ONC 23:22
PROVIDERS: ADMIT Internal Medicine; ATTEND Internal Medicine
DX: D61.810 Antineoplastic chemotherapy induced pancytopenia (principal); C22.1 Intrahepatic bile duct carcinoma; A07.2 Cryptosporidiosis; A04.5 Campylobacter enteritis; K50.00 Crohn's disease of small intestine without complications; R94.5 Abnormal results of liver function studies; E87.6 Hypokalemia; D69.6 Thrombocytopenia, unspecified; D64.9 Anemia, unspecified; I10 Essential (primary) hypertension; E83.42 Hypomagnesemia; T45.1X5A Adverse effect of antineoplastic and immunosuppressive drugs, initial encounter; F17.210 Nicotine dependence, cigarettes, uncomplicated; Z91.81 History of falling; K76.0 Fatty (change of) liver, not elsewhere classified
CPT/HCPCS: 36415; 71045; 76705; 80048; 80053; 80074; 81003; 83605; 83735; 84100; 85025; 87040; 87045; 87046; 87086; 87324; 87328; 87329; 87449; 87804; 87899; 93005; 96365; 96367; A4216; J0692; J1650; J2405; J3370; J3475; J7050; J7500; Q0162; S0028

== ENCOUNTER 2018-06-14 15:32 | Outpatient (CLI) | payer MEDICARE ==
[~2018-06-14 15:32] MED LIST changes: +Gadobenate Dimeglumine 529 MG/1 ML (20ML VIAL) ONE; -Prevnar 13-Val Conj/PF 0.5 ML SYRINGE IM ONE
--- NOTE | 2018-06-14 20:53 | MRI ---
MRI OF THE ABDOMEN WITHOUT AND WITH CONTRAST: 06/14/18 COMPARISON: 04/19/18. HISTORY: Malignant neoplasm of overlapping sites of the biliary system. TECHNIQUE: Multiplanar and multisequence MR images were obtained of the abdomen without and with IV contrast. FINDINGS: There is a large mass in the right lobe of the liver. This mass appears to have decreased in size com pared to the prior examination. Currently, the mass measures approximately 6.5 x 4.8 x 6.6 cm in size using the same measurements as the prior examination. This mass still encircles the common bile duct and extends down to the duodenum. The gallbladder is not seen and has likely been removed. The previ ously seen separate nodule in the anterior aspect of the liver is not visualized on today's examinati on and may have been removed. The mass previously looked more confluent but on today's examination, t his has the appearance of a larger mass followed by multiple smaller surrounding masses. No new lesio ns are seen in the liver. No focal abnormality seen in the kidneys, adrenal glands, spleen, or pancreas. No abdominal adenopath y is seen. No marrow signal abnormality is present. IMPRESSION: There appears to be decreased size of the right hepatic mass. This may represent a partial response t o chemotherapy. POS: C
== END 2018-06-14 15:33 | disposition home or self-care (01) ==
LOC: MRI 15:32
PROVIDERS: ATTEND Internal Medicine Hematology & Oncology
DX: C24.8 Malignant neoplasm of overlapping sites of biliary tract (principal)
CPT/HCPCS: 74183; 82565; A9579